=== PATIENT | female | born 1985 | race Caucasian/White ===

== ENCOUNTER 2022-01-14 08:59 | Emergency (ER) | payer BC ==
[2022-01-14] MEDS ORDERED: Sodium Chloride 0.9% 10 ML Syringe FLUSH PRN (09:33)
[2022-01-14] MEDS: Sodium Chloride 0.9% 1,000 ML IV ONE (09:45)
[2022-01-14 10:18] LABS: CHLORIDE,CL 107 mmol/L (98-107); SODIUM,NA 142 mmol/L (136-145)
[2022-01-14 10:20] LABS: ANION GAP 15.6 mmol/L (5-15)
[2022-01-14 10:26] LABS: PTT,PARTIAL THROMBOPLSTIN TIME 27.4 SEC (20.5-30.9)
[2022-01-14 10:34] VITALS: BP 130/63; PULSE 73
[2022-01-14 10:36] LABS: CORONAVIRUS COVID-19 NAA NEGATIVE (NEGATIVE)
[2022-01-14 10:37] LABS: RESPIRATORY SYNCYTIAL VIR NAA NEGATIVE (NEGATIVE)
== END 2022-01-14 11:07 | disposition home or self-care (01) ==
LOC: VM.ED 08:59
DX: E83.42 Hypomagnesemia (principal); Z20.822 Contact with and (suspected) exposure to COVID-19
CPT/HCPCS: 0241U; 36415; 71045; 80053; 81001; 81025; 83735; 83880; 84100; 84443; 84484; 85025; 85379; 85610; 85730; 86140; 93005; 93010; 99284; 99285-25; J7030

== ENCOUNTER 2022-01-15 17:46 | Observation (INO) | payer BC ==
[2022-01-15] MEDS ORDERED: Sodium Chloride 0.9% 10 ML Syringe FLUSH PRN (18:53)
[2022-01-15 19:03] LABS: BARBITURATE SCREEN,URINE NEGATIVE (NEGATIVE); BENZODIAZEPINES SCREEN,URINE NEGATIVE (NEGATIVE); METHAMPHETAMINE SCREEN, URINE NEGATIVE (NEGATIVE); THC SCREEN,URINE 50 NG/ML NEGATIVE (NEGATIVE)
[2022-01-15 19:04] LABS: BUPRENORPHINE SCREEN,URINE NEGATIVE (NEGATIVE)
[2022-01-15 19:42] LABS: CHLORIDE,CL 106 mmol/L (98-107); SODIUM,NA 143 mmol/L (136-145)
[2022-01-15 19:44] LABS: ANION GAP 14.2 mmol/L (5-15)
[2022-01-15] MEDS ORDERED: Magnesium Sulfate/Water 2 GM in Premix Bag 1 BAG IV ONE (20:16)
[2022-01-16 05:26] VITALS: BP 112/57; PULSE 68
[2022-01-16] MEDS ORDERED: Ondansetron 4 MG in Sodium Chloride 0.9% 100 ML IV PRN (07:24)
[2022-01-16] MEDS ORDERED: Ondansetron 4 MG/2 ML SDV IV PRN (07:31)
[2022-01-16 08:36] LABS: CHLORIDE,CL 108 mmol/L (98-107); SODIUM,NA 143 mmol/L (136-145)
[2022-01-16 08:42] LABS: ANION GAP 13.1 mmol/L (5-15)
== END 2022-01-16 09:35 | disposition home or self-care (01) ==
LOC: VM.ED 17:46 → VM.MS 19:54
PROVIDERS: ADMIT Physician Assistant; ATTEND Physician Assistant
DX: R07.89 Other chest pain (principal); R00.2 Palpitations; E83.42 Hypomagnesemia; I11.9 Hypertensive heart disease without heart failure; F17.210 Nicotine dependence, cigarettes, uncomplicated
CPT/HCPCS: 36415; 80048; 80053; 80305-QW; 80307; 81001; 83735; 84100; 84443; 84484; 85025; 93005; 99284-25; J2405; J3475

== ENCOUNTER 2022-08-23 09:50 | Emergency (ER) | payer BC ==
[2022-08-23 10:55] VITALS: BP 110/79; PULSE 86
[2022-08-23 11:42] LABS: CORONAVIRUS COVID-19 NAA NEGATIVE (NEGATIVE)
== END 2022-08-23 11:53 | disposition home or self-care (01) ==
LOC: VM.ED 09:50
DX: B34.9 Viral infection, unspecified (principal); F17.210 Nicotine dependence, cigarettes, uncomplicated; Z79.899 Other long term (current) drug therapy; Z20.822 Contact with and (suspected) exposure to COVID-19
CPT/HCPCS: 0240U; 99283; 99284

== ENCOUNTER 2022-09-16 10:56 | Emergency (ER) | payer BC ==
[2022-09-16] MEDS ORDERED: Sodium Chloride 0.9% 10 ML Syringe FLUSH PRN (11:09)
[2022-09-16 11:22] VITALS: BP 120/76; PULSE 64
[2022-09-16 11:46] LABS: CHLORIDE,CL 104 mmol/L (98-107); SODIUM,NA 139 mmol/L (136-145)
[2022-09-16 11:47] LABS: PTT,PARTIAL THROMBOPLSTIN TIME 33.6 SEC (20.5-30.9)
[2022-09-16 11:48] LABS: ANION GAP 15.9 mmol/L (5-15); ESTIMATED GFR 114 mL/min (>=60)
== END 2022-09-16 12:45 | disposition home or self-care (01) ==
LOC: VM.ED 10:56
DX: R00.2 Palpitations (principal); F17.210 Nicotine dependence, cigarettes, uncomplicated
CPT/HCPCS: 36415; 71045; 80053; 83735; 84100; 84484; 85025; 85610; 85730; 93005; 99285